=== PATIENT | male | born 2000 | race Caucasian/White ===

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

== ENCOUNTER 2020-02-10 22:27 | Emergency (ER) | payer OTHER ==
[~2020-02-10] VITALS: Ht 177.8 cm; Wt 81.7 kg
[2020-02-10 22:32] VITALS: BP 137/88
[2020-02-10] MEDS ORDERED: CIPRODEX OTIC7.5 ML OTIC (22:55)
== END 2020-02-10 23:25 | disposition home or self-care (01) ==
LOC: ER 22:27
DX: H60.91 Unspecified otitis externa, right ear (principal); J45.909 Unspecified asthma, uncomplicated; F17.200 Nicotine dependence, unspecified, uncomplicated; Z79.899 Other long term (current) drug therapy